=== PATIENT | female | born 1995 | race Caucasian/White ===

== ENCOUNTER 2023-05-15 14:41 | Outpatient (AMB) | payer OTHER, SELFPAY ==
--- NOTE | 2023-05-15 14:42 | AM.OFFWIN_ITS ---
Intake Vital Signs 05/15/23 14:47 Height 5 ft 3 in Weight 128 lb BMI 22.7 BP 120/70 Blood Pressure Location Lt brachial Position Sitting Pulse 99 Pulse Source Pulse Oximeter Temp 98.3 F Temp Source Temporal Artery Scan Pulse Oximetry (%) 98 Intake Visit Reasons: EP, chest congestion, cough (masked) Intake Note: pt is here for c/o cough and chest congestion Patient Tobacco Use Status: Never used Tobacco Allergies No Known Allergies Allergy (Verified 05/15/23 14:43) Do you need a note to return to daycare/school/sports/work: Yes HPI EP, chest congestion, cough (masked) HPI Details 27-year-[facility] of persistent, productive cough. She reports symptoms started last , however started to intensify this past Saturday. She states she is coughing all day and night, and has yellow sputum production. Denies any fever or chills. Denies any shortness of breath or chest pain. Denies any other sick symptoms. No history of asthma. Nonsmoker. Denies known exposure to sick contacts. Has been using some [id number] cough medication with minimal relief. [facility] Social History Patient Tobacco Use Status: Never used Tobacco Review of Systems Const All systems reviewed & are unremarkable except as noted in HPI and below Physical Exam Const General: cooperative and no acute distress HEENT Head: Yes normal to inspection Ears: hearing grossly normal bilaterally General nose exam: Normal external nose present Face and sinus: Yes normal facial exam Mouth: Normal oral and palatal mucosa present Throat: Yes posterior oropharynx abnormal (Erythema) Neck Neck: Yes no lymphadenopathy Resp Effort & Inspection: normal respiratory effort and Actively coughing Quality: productive Auscultation: clear to auscultation bilaterally Cardio Jugular venous distension: no JVD Palpation: normal PMI Rate: regular rate Rhythm: regular rhythm Skin General skin exam: no rashes or lesions noted Extrem General: Yes capillary refill normal and Yes no clubbing, cyanosis or edema Psych Appearance: grossly normal Mental Status: mental status grossly normal Speech and movement: Normal speech and movement present Assessment & Plan Assessment & Plan (1) Upper respiratory infection: Code(s): J06.9 - Acute upper respiratory infection, unspecified Qualifiers: URI type: unspecified URI Qualified Code(s): J06.9 - Acute upper respiratory infection, unspecified Plan: Will start patient on azithromycin and benzonatate. Reviewed indications, use, possible s/e of medications. Advised continued use of Tylenol/Motrin for pain/fever. Recommended rest, increased hydration, vitamin C intake. If she does not improve with treatment, or if symptoms worsen or new symptoms develop, she should return to the clinic for further evaluation. She verbalizes understanding and agrees to plan. Medications: New azithromycin For 250 mg dose pack: take 500 mg today (day 1), then 250 mg for 4 days (days 2-5) PO 6 tabs 0RF J06.9 - Acute upper respiratory infection, unspecified benzonatate 100 mg PO BID 7 days PRN 14 caps 0RF cough R05.9 - Cough, unspecified Coding Level of Care Code Est Pt Level 3 (38613) Diagnoses Upper respiratory tract infection, unspecified type J06.9 URI type: unspecified URI
[2023-05-15 14:47] VITALS: BP 120/70; PULSE 99; TEMP 36.8; O2SAT 98; BMI 22.7
== END 2023-05-15 14:56 | disposition home or self-care (01) ==
PROVIDERS: PCP Internal Medicine; Visit Provider Nurse Practitioner Family
DX: J06.9 Acute upper respiratory infection, unspecified (principal)
CPT/HCPCS: 99213